=== PATIENT | female | born 1935 | race Caucasian/White ===

== ENCOUNTER 2017-02-22 08:51 | Day surgery (SDC) | payer MEDICARE, MEDICAID ==
[2017-02-22 09:09] VITALS: BMI 26.4
[2017-02-22] MEDS ORDERED: Lactated Ringer's 500 ML IV ONE (09:13)
[2017-02-22] MEDS ORDERED: Lidocaine 2% MPF (5 ml) Inj ONE (10:13)
[2017-02-22 10:39] VITALS: BP 114/65; PULSE 81; RESP 18; TEMP 96.8; O2SAT 100
== END 2017-02-22 11:30 | disposition home or self-care (01) ==
LOC: H.ENDO 08:51
PROVIDERS: ATTEND Internal Medicine Gastroenterology
DX: D50.9 Iron deficiency anemia, unspecified (principal); J45.909 Unspecified asthma, uncomplicated; K64.8 Other hemorrhoids; K57.30 Diverticulosis of large intestine without perforation or abscess without bleeding; J44.9 Chronic obstructive pulmonary disease, unspecified; I10 Essential (primary) hypertension
CPT/HCPCS: 45378; J7120